=== PATIENT | male | born 1950 | race Caucasian/White ===

== ENCOUNTER 2018-12-26 12:23 | Emergency (ER) | payer OTHER ==
[~2018-12-26] VITALS: Ht 172.7 cm; Wt 106.6 kg
[2018-12-26 13:30] LABS: CLARITY,URINE CLOUDY (CLEAR); COLOR,URINE BROWN (YELLOW); LEUKOCYTE ESTERASE ,URINE TRACE (NEGATIVE); NITRITE,URINE POSITIVE (NEGATIVE); PROTEIN,URINE DIPSTICK 2+ (NEGATIVE)
[2018-12-26 13:31] LABS: BILIRUBIN,URINE 1+ (NEGATIVE); KETONES,URINE NEGATIVE (NEGATIVE); URINE UROBILINOGEN 1 mg/dL (0.2 - 1)
[2018-12-26 13:38] LABS: BASOPHILS # (AUTO) 0.1 (0.0-0.1); BASOPHILS % 0.7 % (0.0-1.0); EOSINOPHILS # (AUTO) 0.3 (0.0-0.4); EOSINOPHILS % 3.8 % (0.0-6.0); HEMATOCRIT 36.3 % (38.2-49.6); HEMOGLOBIN 11.4 g/dL (14.0-18.0); LYMPHOCYTES # (AUTO) 1.8 (1.0-3.2); LYMPHOCYTES % 21.8 % (18.0-39.1); MEAN CORPUSCULAR HEMOGLOBIN 26.5 pg (28-32); MEAN CORPUSCULAR HGB CONC 31.4 g/dL (31-35); MEAN CORPUSCULAR VOLUME 84.2 fL (81-99); MONOCYTES # (AUTO) 0.7 (0.2-0.8); MONOCYTES % 7.9 % (4.4-11.3); NEUTROPHILS # (AUTO) 5.4 (2.1-6.9); NEUTROPHILS % 65.4 % (38.7-80.0); PLATELET COUNT 366 x10e3/uL (140-360); RED BLOOD COUNT 4.31 x10e6/uL (4.3-5.7); RED CELL DISTRIBUTION WIDTH 14.2 % (11.7-14.4)
[2018-12-26 13:43] LABS: BACTERIA,URINE MANY /HPF; EPITHELIAL CELLS,URINE FEW /LPF; RBC,URINE >50 /HPF (0-5); WBC,URINE (MAN) 0-5 /HPF (0-5)
[2018-12-26 13:45] LABS: INR 0.93
[2018-12-26 13:46] LABS: PARTIAL THROMBOPLASTIN TIME 34.3 seconds (23.8-35.5)
[2018-12-26 13:52] LABS: ALANINE AMINOTRANSFERASE 8 IU/L (0-55); ALBUMIN 3.5 g/dL (3.5-5.0); ALBUMIN/GLOBULIN RATIO 0.7 (0.8-2.0); ALKALINE PHOSPHATASE 68 IU/L (40-150); ANION GAP 12.8 mmol/L (8-16); BLOOD UREA NITROGEN 25 mg/dL (7-26); BUN/CREATININE RATIO 24 (6-25); CALCIUM 9.8 mg/dL (8.4-10.2); CARBON DIOXIDE 25 mmol/L (22-29); CHLORIDE 105 mmol/L (98-107); CREATININE, SERUM 1.03 mg/dL (0.72-1.25); EST GLOMERULAR FILTRATION RATE > 60 ML/MIN (60-); GLUCOSE 90 mg/dL (74-118); POTASSIUM 3.8 mmol/L (3.5-5.1); SODIUM 139 mmol/L (136-145)
[2018-12-26] MEDS ORDERED: CEFTRIAXONE SOD 1 GM/NS 50 ML 50 ML IV ONE (14:30)
[2018-12-26] MEDS ORDERED: IOPAMIDOL 370 MG/ML 200 ML INFUS..BTL INJ ONE (14:55)
[2018-12-26] MEDS ORDERED: SODIUM CHLORIDE 0.9% 250ML 250 ML ONE (14:56)
--- NOTE | 2018-12-26 16:51 | Diagnostic Imaging Report ---
CT UROGRAM Indication: Hematuria, flank pain COMPARISON: None TECHNIQUE: Thin section helical scan through the abdomen and pelvis before and after the intravenous administration of 150 cc of low osmolar, non-ionic contrast by dynamic enhanced scanning protocol. Delayed images were obtained through the collecting system, ureters and bladder. 3-D images of the kidneys, ureters, and bladder were performed on a separate workstation. RADIATION DOSE: Total DLP: 1974.45 mGy*cm Estimated effective dose: (DLP x 0.015 x size factor) mSv CTDIvol has been reviewed. It is below the limits set by the Radiation Protocol Committee (RPC). Dose reduction techniques used: Automated exposure control, adjustment of the mAs and/or kVp according to patient size, standardized low-dose protocol, and/or iterative reconstruction technique. Findings: Lung Bases: Diffuse subcarinal and right hilar lymphadenopathy with numerous pulmonary nodules in the lung bases. The largest nodule in the right lung base is in the lower lobe abutting the pleura measuring 1.6 x 1.8 cm. The heart is mildly enlarged. No filling defects in the visualized great vessels Liver: Decreased attenuation consistent with steatosis. Subtle low attenuating lesions in segments 8 and 6 measure about 6 mm and are is too small to characterize. No visual signs of enhancement. Gallbladder: Present and normal, No biliary ductal dilatation. Pancreas: Mild fatty atrophy without mass or ductal dilatation Spleen: Top normal in size. No mass Adrenal Glands: The right adrenal gland is normal. The left adrenal gland contains a 1.8 x 1.7 cm nodule with attenuation of 25 Hounsfield units. Pelvis: Bowel: Small hiatal hernia. Stomach: Normal. Small bowel: Normal in diameter with normal wall thickness. Large bowel: A few scattered diverticula without associated inflammation. No dilatation or mural thickening. Appendix: Normal. Lymph nodes: A lymph node adjacent to the distal esophagus measures 1.3 x 1.0 cm. There are multiple subcentimeter lymph nodes in the small bowel mesentery. There are multiple subcentimeter periaortic lymph nodes. A right obturator lymph node measures 2.1 x 0.8 cm. Bones: Degenerative changes of the spine. No compression deformity or lytic/blastic lesions. Soft tissues: Unremarkable. Kidneys, ureters and bladder with 3-D reformations: Right Kidney : There are punctate calcifications throughout. Low attenuating mass in the posterior interpolar cortex measures 1.7 x 1.8 cm and 6 Hounsfield units. There is no evidence of enhancement. No solid mass.. Left Kidney: Large infiltrative mass involving the upper pole, posterior interpolar cortex, and posterior lower pole. This measures 17.0 x 10.4 x 15.7 cm (AP, transverse, craniocaudal). There is invasion into the left renal vein. Unenhanced images demonstrate no evidence of calculus. There are multiple collateral vessels in the anterior and posterior pararenal spaces Excretory phase: There is excretion into the right renal collecting system which is normal in morphology. The ureter is normal in diameter throughout its course without intrinsic or extrinsic filling defect. There is excretion into the lower pole collecting system of the left kidney. There is soft tissue inflammation in the infundibulum, renal pelvis, and extending into the proximal ureter. The contrast column stops just before the left common iliac artery with multiple surrounding lymph nodes. The ureter is not dilated. Distal to the left common iliac artery, the ureter is collapsed. Bladder: Well-distended with mild mural thickening. Only the right ureteral jet is visible. Prostate: Measures 4.1 x 5.7 cm in the axial plane. Seminal vesicles are normal. IMPRESSION: 1. Large infiltrative mass in the left kidney consistent with renal cell carcinoma. There is renal vein invasion, suspicion for involvement of the lower pole collecting system and proximal ureter, and multiple pulmonary masses and mediastinal lymphadenopathy consistent with metastases. Left adrenal nodule measures 1.8 cm and is concerning for metastasis. 2. No evidence of left intrarenal calculus. Tiny nonobstructing right intrarenal calculi. 3. Cyst in the right kidney as described above. 4. Prostate hypertrophy and bladder wall thickening suggestive of outlet obstruction. No bladder wall mass. 5. Subcentimeter low attenuating hepatic lesions are too small to characterize, but statistically cysts. 6. Small hiatal hernia. Thank you for your referral. Signed by: Dr. Bello Calloway MD on 12/26/2018 4:48 PM
--- NOTE | 2018-12-26 17:35 | NUR ---
PATIENT AMBULATORY TO TRIAGE ROOM, DR HUTCHINS IN TRIAGE FOR RE-EVAL AND DISCUSSING THE CURRENT PLAN OF CARE WITH PATIENT AND FAMILY,VERBALIZED UNDERSTANDING.
== END 2018-12-26 18:32 | disposition home or self-care (01) ==
LOC: ER 12:23
DX: N30.91 Cystitis, unspecified with hematuria (principal); N10 Acute pyelonephritis; C64.9 Malignant neoplasm of unspecified kidney, except renal pelvis
CPT/HCPCS: 36415; 74178; 80053; 81001; 85025; 85610; 85730; 99284; J0696; J7050; Q9967